=== PATIENT | male | born 1985 | race Two or more races ===

== ENCOUNTER 2017-04-13 15:18 | Emergency (ER) | payer OTHER ==
[~2017-04-13] VITALS: Ht 177.8 cm; Wt 118.8 kg
[2017-04-13] MEDS ORDERED: NKM (15:26)
[2017-04-13] MEDS ORDERED: Lidocaine 1% 10mg/ml/Epi 0.005mg/ml 30ml vial INJ ONE (15:45)
[2017-04-13] MEDS ORDERED: CEPHALEXIN500 MG ORAL (16:56)
[2017-04-13] MEDS ORDERED: BACITRACIN-P28.35 GM TP (16:56)
--- NOTE | 2017-04-13 16:56 | Emergency Room Report ---
History of Present Illness General Chief Complaint: Lower Extremity Injury Source: Patient Present Illness HPI 32 YO Male presents to the ED c/o laceration to right thigh at work by wood cutting tool x 1 hour. Denies taking blood thinning medications, pt. UTD with tetanus vaccination. pt. denies possibility of impaled fb's. pt. states gaping open wound with bleeding. Denies pain at this time. Denies numbness tingling or loss of sensation or gross motor movements of the extremities, incontinence of bowel or bladder. Denies CP, Palpitations, LOC, AMS, dizziness, Changes in Vision, Sensation, paresthesias, or a sudden severe headache. Allergies: Coded Allergies: No Known Allergies (Unverified , 04/13/17) Patient History Past Medical History: see triage record Past Surgical History: none Pertinent Family History: none Immunizations: UTD Reviewed Nursing Documentation: PMH: Agreed Nursing Documentation-PMH Past Medical History: No Stated History Review of Systems All Other Systems: negative except mentioned in HPI Physical Exam Vital Signs Date Time Temp Pulse Resp B/P (MAP) Pulse Ox O2 Delivery O2 Flow Rate FiO2 04/13/17 15:23 98.4 89 16 146/96 97 Room Air Sp02 EP Interpretation: reviewed, normal General Appearance: no apparent distress, alert, GCS 15, non-toxic Head: normocephalic, atraumatic ENT: hearing grossly normal, normal voice Neck: full range of motion Respiratory: lungs clear, normal breath sounds, speaking full sentences Cardiovascular #1: regular rate, rhythm, normal capillary refill Musculoskeletal: back normal, gait/station normal, normal range of motion, non- tender Neurologic: alert, oriented x3, responsive, motor strength/tone normal, sensory intact, speech normal Skin: normal color, no rash, warm/dry, well hydrated, laceration - Right Thigh laceration approx 9 inches in length Procedures Laceration/Wound Repair Laceration/Wound Repair : Consent: Verbal Wound Location: lower extremity Wound's Depth, Shape: linear Wound Length (cm): 22 Wound Explored: clean Irrigated w/ Saline (ccs): 1000 Anesthesia: Lidocaine w/ Epi Volume Anesthetic (ccs): 10 Wound Debrided: minimal Wound Repaired With: sachi Number of Sutures: 36 Layer Closure?: Yes Deep Layer Suture Size/Type: 4:0, chromic Number Deep Layer Sutures: 6 Sterile Dressing Applied?: Yes Splint Applied?: Yes Type of Splint Applied: MITCHELL WRAP Sling Applied?: No Patient Tolerated: Well Complications: None Medical Decision Making PA Attestation Dr. edwards is my supervising Physician whom patient management has been discussed with. Diagnostic Impression: Primary Impression: Laceration of thigh, right, complicated Qualified Codes: S71.111A - Laceration without foreign body, right thigh, initial encounter ER Course 32 YO Male presents to the ED c/o laceration to right thigh at work by wood cutting tool x 1 hour. Denies taking blood thinning medications, pt. UTD with tetanus vaccination. pt. denies possibility of impaled fb's. pt. states gaping open wound with bleeding. Denies pain at this time. Denies numbness tingling or loss of sensation or gross motor movements of the extremities, incontinence of bowel or bladder. Denies CP, Palpitations, LOC, AMS, dizziness, Changes in Vision, Sensation, paresthesias, or a sudden severe headache. Ddx considered but are not limited to laceration, tendon injury, cellulitis, amputation, foreign body, hypovolemia, arterial injury just to name a few. Vital signs: are WNL, pt. is afebrile H&PE are most consistent with: Right Thigh laceration approx 9 inches in length ORDERS: none required at this time, the diagnosis is clinical ED INTERVENTIONS: -Tetanus vaccine was administered as pt. vaccination status was unknown. - The wound was copiously irrigated with normal saline, and explored for foreign body for which no FB was found. - pt. is anesthetized with 1%lidocaine w. epi. -6 deep dissolving sutures were used to approximate the underlying subcutaneous fat of the open wound using chromic 4.0 - The wound was approximated and closed using 36 Coram -Bacitracin and sterile dressing is applied. -Mitchell wrap applied to the right thigh by outboard technician. Pt. remains neurovascularly intact. Discussed with patient: That we make every effort to approximate the laceration as best as we can so that scarring will be as cosmetically pleasing as possible with our limited cosmetic skill set in the Emergency dept. Regardless of our best efforts there will be scarring after laceration repair. The extent of scarring is unknown at this time. DISCHARGE: At this time pt. is stable for d/c to home. Will provide printed patient care instructions, and any necessary prescriptions. Care plan and follow up instructions have been discussed with the patient prior to discharge. Last Vital Signs Date Time Temp Pulse Resp B/P (MAP) Pulse Ox O2 Delivery O2 Flow Rate FiO2 04/13/17 15:23 98.4 89 16 146/96 97 Room Air Disposition: HOME, SELF-CARE Condition: Stable Scripts Bacitracin/Polymyxin B Sulfate (BACITRACIN-POLYMYXIN OINTMENT) 28.35 Gm Oint...g. 1 APPLIC TP BID, #28.3 GM Prov: Maddie Gusman 04/13/17 Cephalexin* (KEFLEX*) 500 Mg Capsule 500 MG ORAL EVERY 12 HOURS for 7 Days, #14 CAP 0 Refills Prov: Maddie Gusman 04/13/17 Referrals: NOT CHOSEN IPA/MD,REFERRING (PCP) Departure Forms: Return to Work Return to Work Date: Apr 17, 2017 Work Restrictions: No Heavy Lifting, No Prolonged Standing Other Restrictions: limited walking, lifting and use of right leg. Return to Full Activity: Apr 24, 2017 Patient Instructions: Laceration Care, Adult Additional Instructions: Take medications as directed. Sachi to be removed in 14 days Follow up with a Primary Care Provider in 3-5 days, even if your symptoms have resolved. --Please review list of primary care clinics, if you do not already have a primary care provider Return sooner to ED if new symptoms occur, or current symptoms become worse. - Please note that this Emergency Department Report was dictated using [employer] technology software, occasionally this can lead to erroneous entry secondary to interpretation by the dictation equipment. Maddie Gusman Apr 13, 2017 16:56
[2017-04-13 17:15] VITALS: BP 135/76
== END 2017-04-13 17:15 | disposition home or self-care (01) ==
LOC: EMR 15:40
DX: S71.111A Laceration without foreign body, right thigh, initial encounter (principal); Z23 Encounter for immunization; W29.8XXA Contact with other powered hand tools and household machinery, initial encounter; Y93.H3 Activity, building and construction; Y92.89 Other specified places as the place of occurrence of the external cause; Y99.0 Civilian activity done for income or pay
CPT/HCPCS: 99284